=== PATIENT | female | born 1980 | race American Indian/Alaskan Native ===

== ENCOUNTER 2016-03-07 21:03 | Outpatient (CLI) | payer MEDICAID ==
[2016-03-07] MEDS ORDERED: LACTATED RINGERS 500 ML IV ONE (21:08)
[2016-03-07] MEDS ORDERED: LACTATED RINGERS 1,000 ML ONE ×2 (21:22→22:24)
[2016-03-07 22:10] LABS: Bilirubin,Urine NEG (Negative); Blood,Urine NEG (Negative); Ketones,Urine TR mg/dL (Negative); Leukocyte Esterase,Urine NEG (Negative); Nitrite,Urine NEG (Negative); Protein,Urine <15 mg/dL mg/dL (Negative); Urobilinogen,Urine < 2.0 mg/dL (<2.0)
[2016-03-07] MEDS: BRETHINE SUB-Q PRN ×3 (22:25→23:18)
[2016-03-07 22:48] VITALS: BP 121/59
[2016-03-07] MEDS ORDERED: LACTATED RINGERS 1,000 ML IV SCH (23:00)
[2016-03-08] MEDS ORDERED: VISTARIL PO ONE (00:01)
== END 2016-03-08 00:21 | disposition home or self-care (01) ==
LOC: TRG 21:03
PROVIDERS: ATTEND Obstetrics & Gynecology
DX: O62.0 Primary inadequate contractions (principal); Z3A.36 36 weeks gestation of pregnancy
CPT/HCPCS: 81001; 96360; 96361; 96372; J3105; J7120; Q0177

== ENCOUNTER 2016-04-04 02:19 | Inpatient (IN) | payer MEDICAID ==
[2016-04-04] MEDS ORDERED: LACTATED RINGERS 1,000 ML ONE (03:09)
[2016-04-04] MEDS: LACTATED RINGERS 1,500 ML IV NR ×2 (03:30→05:05)
[2016-04-04] MEDS ORDERED: REGLAN IV ONE (03:58)
[2016-04-04] MEDS ORDERED: BICITRA PO ONE (03:58)
[2016-04-04] MEDS ORDERED: PEPCID IV ONE (03:59)
[2016-04-04] MEDS ORDERED: PITOCin/NS 20 UNIT/1000ML DRIP 20,000 MILLIUNITS/1,000 ML BAG IV ONE (04:23)
[2016-04-04] MEDS ORDERED: SUBLIMAZE IV ONE (04:31)
--- NOTE | 2016-04-04 04:56 | Anesthesia Consultation ---
Anesthesia Consult and Med Hx Date of service: 04/04/16 - Airway Anesthetic Teeth Evaluation: Good ROM Head & Neck: Adequate Mental/Hyoid Distance: Adequate Mallampati Class: Class II Intubation Access Assessment: Probably Good - Pulmonary Exam CTA: Yes - Cardiac Exam Cardiac Exam: RRR - Pre-Operative Health Status ASA Pre-Surgery Classification: ASA2 Proposed Anesthetic Plan: Spinal - Pulmonary Hx Smoking: No Hx Asthma: No - Cardiovascular System Hx Hypertension: No - Central Nervous System Hx Seizures: No Hx Psychiatric Problems: No - Endocrine Hx Renal Disease: No Hx Hypothyroidism: No Hx Hyperthyroidism: No - Hematic Hx Anemia: No Hx Sickle Cell Disease: No - Other Systems Hx Alcohol Use: No
--- NOTE | 2016-04-04 04:56 | Anesthesia Day of Surgery ---
Anesthesia Day of Surgery - Day of Surgery Patient Examined: Yes Patient H&P Reviewed: Yes Patient is NPO: Yes
[2016-04-04] MEDS ORDERED: ZOFRAN IV PRN ×2 (04:57→07:29)
[2016-04-04] MEDS ORDERED: PHENERGAN PR PRN ×2 (04:57→07:29)
[2016-04-04] MEDS ORDERED: DILAUDID IV PRN ×2 (04:57)
[2016-04-04] MEDS ORDERED: PHENERGAN PO PRN (04:57)
[2016-04-04] MEDS ORDERED: NARCAN 0.4 MG/1 ML IV PRN ×2 (04:57→07:29)
[2016-04-04] MEDS ORDERED: SODIUM CHLORIDE FLUSH SYRINGE 10 ML IV NR ×2 (05:00→08:00)
--- NOTE | 2016-04-04 05:02 | History and Physical Report ---
History of Present Illness Date of examination: 04/04/16 Date of admission: 04/04/16 04:32 Chief complaint: complaining of contractions and srom History of present illness: 35 yo at 40 weeks complaining of initially srom neg for srom c/o contractions and noted to be 2-3cm by nurse. She obtained care at 10 weeks by MONTEZ tucker. She received [facility] recommendations for AMA. She has a hx of HSV2 and in the past she had 3 with a csec for oligo failed iol chorio and arrest of dilataion. She is s previous A1 diabetic buyt in this 3hr nl PMH: chlamydia treated in past gonorrhea treated in past Herpes and nl pap as of 2005 2012 pap showed HPV+ ascus PSH: breast reduction and csec as above FMH: asthma ( mother) cancer ( uncle) DM 2 ( sister) HTN ( mother and sister) meds: PNV, valtrex all: NKDA SH: no tobacco no etoh no drugs labs O+, antibody neg h/h 11.6/35.8, pap nl, IMMUNE, Rpr neg, hep neg, HIV neg, Plt 247, HSV2 +, AA, G/C neg glucose 134 GBS neg US 03/03 [place] EGA 35 weeks EFW 2677 49% vertex anterior grade 2-3 placenta nl anatomy BPP 09/28 Past History Past Medical History: diabetes Past Surgical History: section, other (breast augementation) MACHINE [employer] History: abnormal PAP smear, gonorrhea, herpes Family/Genetic History: diabetes, hypertension, cancer Social history: no significant social history, . denies: smoking, alcohol abuse, IV drug use - Obstetrical History Expected Date of Delivery: 04/04/16 Actual Gestation: 40 Week(s) 0 Day(s) : 5 Para: 4 Hx # Term Pregnancies: 4 Number of Pregnancies: 0 Spontaneous Abortions: 0 Induced : 0 Number of Living Children: 4 Medications and Allergies Allergies Allergy/AdvReac Type Severity Reaction Status Date / Time No Known Allergies Allergy Verified 09/06/15 19:26 Active Meds: Active Medications Lactated Ringer's (Lactated Ringers) 1,500 mls @ 2,250 mls/hr IV PREOP NR Stop: 04/05/16 03:59 Review of Systems All systems: negative Constitutional: weight gain Eyes: deferred Ears, nose, mouth and throat: deferred Breasts: deferred Genitourinary: normal appearance, leakage of fluid, no vaginal bleeding Rectal Exam: deferred - Vital Signs Vital signs: Vital Signs Pulse Pulse Ox 101 H 92 04/04/16 02:56 04/04/16 02:56 Temp Pulse Resp BP Pulse Ox 107 H 20 114/71 97 04/04/16 04:35 04/04/16 04:49 04/04/16 03:09 04/04/16 04:35 - Physical Exam Breasts: Positive: normal Cardiovascular: Regular rate, Normal S1, Normal S2 Lungs: Positive: Clear to auscultation, Normal air movement Abdomen: Positive: normal appearance, soft, normal bowel sounds. Negative: distention, tenderness, guarding Genitourinary (Female): Positive: normal external genitalia, normal perenium Vulva: both: normal Vagina: Positive: normal moisture Uterus: Positive: enlarged, normal contour Anus/Rectum: Positive: normal perianal skin Extremities: Positive: normal. Negative: edema Deep Tendon Reflex Grade: Normal +2 - Obstetrical FHR: category 1 Uterine Contraction Monitor Mode: External Cervical Dilatation: 2 Uterine Contraction Pattern: Regular Results All other labs normal. Assessment and Plan A/P HD#1 Early labor GBS neg No indication of rupture desires repeat c/s desires salpingectomy discussed r/b/a which include but not limited to bleeding infection damage to pelvic and non pelvic damage risk of hysterectomy risk of . she verbal voiced understanding and will proceed with c/s as previously desired but both and herself declined All questions answered
[2016-04-04] MEDS ORDERED: ePHEDrine SULFATE ONE (05:04)
[2016-04-04] MEDS ORDERED: MORPHINE ONE (05:04)
[2016-04-04 05:13] LABS: Hematocrit 33.1 % (30.3-42.9); Hemoglobin 10.9 gm/dl (10.1-14.3); Mean Corpuscular HGB Conc 33 % (30-34); Mean Corpuscular Hemoglobin 29 pg (28-32); Mean Corpuscular Volume 88 fl (79-97); Platelet Count 273 K/mm3 (140-440); Red Blood Count 3.77 M/mm3 (3.65-5.03); Red Cell Distribution Width 14.9 % (13.2-15.2); White Blood Count 11.6 K/mm3 (4.5-11.0)
[2016-04-04] MEDS ORDERED: NACL 0.9% 1000 ML 1,000 ML ONE (05:52)
[2016-04-04] MEDS ORDERED: WATER FOR IRRIG STERILE IR ONE (05:55)
[2016-04-04] MEDS ORDERED: NACL 0.9% IR ONE (05:55)
[2016-04-04] MEDS ORDERED: NACL P/F VIAL (10 ML) 10 ML ONE (06:09)
[2016-04-04] MEDS ORDERED: VERSED ONE (06:33)
[2016-04-04] MEDS ORDERED: LANSINOH TP PRN (07:29)
[2016-04-04] MEDS ORDERED: SENOKOT PO PRN (07:29)
[2016-04-04] MEDS ORDERED: ANUCORT-HC PR PRN (07:29)
[2016-04-04] MEDS ORDERED: TUCKS PAD TP PRN (07:29)
[2016-04-04] MEDS ORDERED: MYLICON PO PRN (07:29)
[2016-04-04] MEDS ORDERED: TYLENOL PO PRN (07:29)
[2016-04-04] MEDS ORDERED: TORADOL IV PRN (07:29)
[2016-04-04] MEDS ORDERED: NORCO 5/325 PO PRN (07:29)
[2016-04-04] MEDS ORDERED: MORPHINE IV PRN (07:29)
[2016-04-04] MEDS ORDERED: MILK OF MAGNESIA PO PRN (07:29)
--- NOTE | 2016-04-04 07:35 | Procedure Note ---
OB Delivery Note - Delivery Date of Delivery: 04/04/16 Surgeon: RAMANDEEP ELIZABETH Estimated blood loss: other (750cc) - Section Preop diagnosis: repeat , desires sterilization Postop diagnosis: same section procedure: repeat low transverse, other (salpingectomy with ligassure) Complications: none - Infant A at 1 minute: 8 at 5 minutes: 9 Gender: Female (8 # 9 oz)
--- NOTE | 2016-04-04 07:42 | Post Anesthesia Evaluation ---
- Post Anesthesia Evaluation Patient Participated: Yes Airway Patent: Yes Stable Respiratory Function: Yes Temp > 96.8F: Yes Pain Manageable: Yes Adequeate Hydration: Yes Anesthesia Complications: No Block Receding Appropriately: Not Applicable
--- NOTE | 2016-04-04 07:49 | Operative Report ---
Operative Report Operative Report: This is a dictation note for Diana RE ID Diagnosis #1 intrauterine gestation at 40 weeks, in active labor #2 desires repeat #3 desires permanent sterilization, previous failed tubal ligation Postoperative diagnosis 1 through 3 same as above X 4 nuchal 1 loose Procedure repeat low segment transverse Salpingectomy via LigaSure [place] Surgeon Dr. Fiorella James [place] anesthesia spinal Complications none Estimated blood loss 750 mL Specimen to pathology right and left tube Operative findings A viable female infant with Apgars 8 and 9 and weight 8 pounds and 9 ounces was delivered from a cephalic presentation amnionic fluid was clear the uterus fallopian tubes and ovaries were normal Description of operation The patient was brought to the operating suite in stable condition with the spinal anesthesia that was placed and an indwelling catheter in place in the bladder the patient was placed supine in the operating room and rolled to her left side with the drainage. The abdomen was prepped and draped in the normal sterile fashion for the . After testing with the Allis to assure an adequate anesthetic level the surgery was commenced. We did sexual abuse counsellor the patient extensively regarding the risk of the surgery including but not limited to show embolus and phlebitis pain infection and hemorrhage as well as injury to the infant and the internal organs such as the bowel bladder and the blood vessels, nerves kidneys and ureters and pelvic organs. Survey such as the bowel bladder blood vessels and nerves kidneys ureters and pelvic organs. The patient was aware of that. Morbidity issues and recovery time frames. Patient was aware she can form adhesions which can result in obstruction of the loop of the bowel where the ureter or chronic pain. She is aware that she should have hemorrhage and required blood transfusion. There is a small chance for exposure to hepatitis or HIV disease. With the scalpel Vancil skin incision was made. Dissection was carried down sharply through to the subcutaneous tissue and the fascia in a transverse plane with scalpel, electrocautery and curved Melgar scissors were used. The fascia was sharply freed up superiorly and inferiorly from the underlying rectus muscles which were bluntly and sharply divided. The peritoneum was entered carefully in a clear space. The peritoneal incision was then extended vertically with the Metzenbaum scissors the retractor and the bladder blade were placed. The bladder flap was created incising transversely through the peritoneum and the vesicouterine fold and then bluntly dissecting the bladder distally. With the scalpel a low transverse hysterotomy was commenced the os noted to be very very thin. Cord and the uterine cavity was actually anterior to. Uterine incision was then extended with manipulation of the recoating machine operator's fingers. An intrauterine hand was placed in the head of the infant was brought up of the pelvis into the uterine incision prior to that Allis was used to break the bag was clear fluid the fundal pressure.*Assure she was delivered without difficulty. The nasopharynx and oropharynx was suctioned. The cord was double clamped and transected. The was handed off to the nursery personnel. Apgars were good at 8 and 9. Her blood was collected for routine testing. IV Pitocin was initiated prior to the case Ancef was given prior to the procedure. The The placenta was manually removed. The uterine cavity was then curetted with a dry sponge and freed of the remaining membranes. The edges of the uterine incision was grasped with a Cornejo clamps. The massage and Pitocin the uterus began to firm firm up normally. The uterine incision was then closed with the with 2 layers of 0 Vicryl sutures. The first suture was placed in the endometrium and the myometrium the second suture was placed within the endopelvic fascia and also reincorporated the bladder flap peritoneum. The lavage was then performed. The pelvis and the gutters were irrigated and suctioned and cleared of all blood and blood and clots and amniotic fluid. The uterine incision was reinspected Surgicel was placed at the uterine incision for reassurance excellent hemostasis was noted it was backfilled with sterile milk and there was no white substance noted in the trickle feel bladder was intact and attention was then turned to the left and right tubes there was noted to be a total clamp in the midline 2-3 cm on the on the right and on the left the clamp was located further distally and appropriately placed LigaSure was then operated and the tube was gently grasped with the Arcadio and it is tube we were able to do the LigaSure and cut all the way to completely transect the tube for salpingectomy on the left and the right was done in the same manner excellent hemostasis was noted when satisfied with hemostasis, attention was turned to the closure of the abdominal incision the peritoneal muscles and fascia was evaluated the fascia was closed with a PDS the subcutaneous tissue was closed with a 30 plain and the skin was closed with a subcuticular suture 40 with a Dwayne needle followed by benzoin and Steri-Strips and Telfa dressing. The patient was moved to the recovery room in stable condition with the Alberts catheter draining clear urine and she responds and needle counts were correct 2 estimated blood loss was 750 mL and there were no complication is the end of the dictation thank you
[2016-04-04] MEDS ORDERED: DRIP IV SCH (08:00)
[2016-04-04] MEDS ORDERED: NS IV SCH (08:00)
[2016-04-04] MEDS ORDERED: PITOCIN IV SCH (08:00)
[2016-04-04] MEDS ORDERED: PITOCin/NS 20 UNIT/1000ML DRIP 20 UNIT/1,000 ML BAG IV SCH (10:00)
[2016-04-04] MEDS ORDERED: D5LR 1,000 ML IV ONE (16:30)
[2016-04-04] MEDS ORDERED: D5LR 1,000 ML IV SCH (18:00)
[2016-04-04 19:13] LABS: Hematocrit 26.8 % (30.3-42.9); Hemoglobin 8.9 gm/dl (10.1-14.3)
[2016-04-05] MEDS: MOTRIN PO PRN ×2 (04:06→13:31)
[2016-04-05] MEDS ORDERED: BOOSTRIX IM ONE ×2 (05:47→12:00)
[2016-04-05] MEDS ORDERED: MILK OF MAGNESIA PO PRN (08:45)
--- NOTE | 2016-04-05 08:47 | Progress Note ---
Assessment and Plan A: POD#1 s/p repeat section with bilateral salpingectomy, Asymptomatic anemia P: Routine postop care. Abdominal binder. Aggressive bowel regimen. Subjective - Subjective Date of service: 04/05/16 Principal diagnosis: s/p section at term, salpingectomy Interval history: No overnight events. Patient reports: appetite normal, pain well controlled, flatus, ambulating normally, no bowel movement, no nauseated : doing well Objective - Vital Signs Latest vital signs: Vital Signs Temp Pulse Resp BP 04/05/16 03:00 98.6 F 85 18 109/55 04/05/16 00:00 98.5 F 87 18 101/57 04/04/16 21:00 98.5 F 85 18 116/62 04/04/16 16:20 98.4 F 80 20 112/70 04/04/16 11:44 98.3 F 76 20 120/70 Intake and Output 04/04/16 04/05/16 04/05/16 22:59 06:59 14:59 Intake Total 495 360 Output Total 1200 1000 Balance -705 -640 Intake: IV 375 D5lr 1,000 ml @ 125 mls/ 250 hr IV DIRECT VERNA Rx#: [id number] Left Hand 125 Oral 120 Intake, Free Water 360 Output: Urine 1200 1000 Indwelling Catheter 600 Void 600 1000 Other: Total, Intake Amount 120 Total, Output Amount 600 600 - Exam Breasts: Present: deferred Cardiovascular: Present: Regular rate Lungs: Present: Clear to auscultation Abdomen: Present: soft (obese ), distention (mild ), abnormal bowel sounds ( hypoactive ) Uterus: Present: fundal height at umbilicus Extremities: Present: edema (trace ) Incision: Present: dressed - Labs Labs: Abnormal lab results 04/04/16 Range/Units 19:04 Hgb 8.9 L (10.1-14.3) gm/dl Hct 26.8 L D (30.3-42.9) %
[2016-04-05] MEDS: PERCOCET 5/325 PO PRN ×3 (09:23→17:50)
[2016-04-05] MEDS: FEOSOL PO SCH ×2 (10:55→11:00)
[2016-04-05] MEDS: PRENATAL VITAMIN PO SCH ×2 (10:55→11:00)
[2016-04-05] MEDS ORDERED: M-M-R II VACCINE SUB-Q ONE (12:00)
--- NOTE | 2016-04-05 13:41 | Progress Note ---
Subjective Date of service: 04/05/16 Principal diagnosis: s/p section at term, salpingectomy Interval history: 1st POD after Patient is in the bed, comfortable. Pain is mostly controlled with pain meds. Ambulated normally. No residual neurological deficit. No anesthesia complications Objective - Constitutional Vitals: Vital Signs - 12hr 04/05/16 04/05/16 04/05/16 03:00 07:45 09:23 Temperature 98.6 F 98.2 F Pulse Rate [ 85 69 Right Radial] Respiratory 18 20 20 Rate Blood Pressure 109/55 100/56 [Right Arm] 04/05/16 04/05/16 13:31 13:32 Temperature Pulse Rate [ Right Radial] Respiratory 20 20 Rate Blood Pressure [Right Arm] - Labs CBC & Chem 7: 04/04/16 19:04 Labs: Abnormal lab results 04/04/16 Range/Units 19:04 Hgb 8.9 L (10.1-14.3) gm/dl Hct 26.8 L D (30.3-42.9) %
[2016-04-05] MEDS: MILK OF MAGNESIA PO SCH ×2 (18:00→22:00)
[2016-04-06] MEDS: MILK OF MAGNESIA PO SCH (02:05)
[2016-04-06] MEDS: PERCOCET 5/325 PO PRN ×2 (04:54→08:45)
[2016-04-06] MEDS ORDERED: BOOSTRIX IM ONE (06:00)
[2016-04-06] MEDS ORDERED: TRIPLE ANTIBIOTIC TP SCH (08:00)
--- NOTE | 2016-04-06 08:37 | Progress Note ---
Assessment and Plan - Patient Problems (1) Previous delivery affecting Current Visit: Yes Status: Acute Plan to address problem: Patient doing well Discharge home Subjective - Subjective Date of service: 04/06/16 Principal diagnosis: s/p section at term, salpingectomy Interval history: Patient is without complaints. She is currently tolerating a regular diet and her pain is well-controlled. Patient reports: appetite normal, voiding normally, pain well controlled : doing well Objective - Vital Signs Latest vital signs: Vital Signs Temp Pulse Resp BP 04/06/16 00:00 98.6 F 62 18 116/53 04/05/16 18:45 98.2 F 69 20 100/56 04/05/16 17:50 20 04/05/16 13:32 20 04/05/16 13:31 20 04/05/16 09:23 20 Intake and Output 04/05/16 04/06/16 04/06/16 22:59 06:59 14:59 Intake Total 480 Balance 480 Intake: Oral 480 Other: Total, Intake Amount 240 # Voids Void 1 1 - Exam Abdomen: Present: normal appearance, soft Uterus: Present: normal, firm Incision: Present: normal
--- NOTE | 2016-04-06 08:38 | Discharge Summary ---
Providers - Providers Date of Admission: 04/04/16 04:32 Date of discharge: 04/06/16 Attending physician: RAMANDEEP JAMES MD Primary care physician: RAMANDEEP JAMES MD Hospitalization Reason for admission: section Delivery: Procedure: section, bilateral tubal ligation, repeat low transverse Incision: normal Discharge diagnosis: IUP at term delivered [place] baby: female Hospital course: The patient was admitted for repeat delivery. Please see operative note for details of surgery. Her postoperative course was uneventful. Condition at discharge: Good Disposition: DISCHARGED TO HOME OR SELFCARE - Discharge Diagnoses (1) Previous delivery affecting Status: Acute Plan - Discharge Medications Prescriptions: Ferrous Sulfate [Feosol 325 MG tab] 325 mg PO BID #60 tablet Ibuprofen [Motrin] 800 mg PO Q8HR PRN #30 tablet PRN Reason: Pain oxyCODONE /ACETAMINOPHEN [Percocet 5/325] 1 tab PO Q6HR PRN #40 tablet PRN Reason: Pain Vit-Fe Fumar-FA [ Vitamin] 1 tab PO QDAY #30 tablet - Provider Discharge Summary Activity: no sex for 6 weeks, no heavy lifting 4 weeks, no strenuous exercise Diet: routine Instructions: routine Additional instructions: [] Smoking cessation referral if applicable(refer to patient education folder for contact #) [] Refer to [facility]'s [facility] Booklet Call your doctor immediately for: * Fever > 100.5 * Heavy vaginal bleeding ( >1 pad per hour) * Severe persistent headache * Shortness of breath * Reddened, hot, painful area to leg or breast * Drainage or odor from incision. * Keep incision clean and dry at all times and follow doctor's instructions regarding bathing/showering Follow-up in [address] James for an incision check - Follow up plan
[2016-04-06] MEDS: MOTRIN PO PRN (08:46)
[2016-04-06 09:51] VITALS: BP 120/66
== END 2016-04-06 11:20 | disposition home or self-care (01) | DRG 765 ==
LOC: TRG 02:19 → APU 04:32 → OB 07:46 → APU 07:47 → OB 09:04
PROVIDERS: ADMIT Obstetrics & Gynecology; ATTEND Obstetrics & Gynecology
PROC: 10D00Z1 Extraction of Products of Conception, Low, Open Approach (ICD-10-PCS; principal; 2016-04-04)
PROC: 0UT70ZZ Resection of Bilateral Fallopian Tubes, Open Approach (ICD-10-PCS; 2016-04-04)
DX: O34.219 Maternal care for unspecified type scar from previous cesarean delivery (principal); O24.12 Pre-existing type 2 diabetes mellitus, in childbirth; D62 Acute posthemorrhagic anemia; O90.81 Anemia of the puerperium; Z37.0 Single live birth; Z82.5 Family history of asthma and other chronic lower respiratory diseases; Z3A.40 40 weeks gestation of pregnancy; Z83.3 Family history of diabetes mellitus; Z80.9 Family history of malignant neoplasm, unspecified; Z82.49 Family history of ischemic heart disease and other diseases of the circulatory system; O09.523 Supervision of elderly multigravida, third trimester; Z30.2 Encounter for sterilization
CPT/HCPCS: 36415; 85014; 85018; 85027; 86850; 86900; 86901; 88302; 90471; 90715; A6250; J1170; J2250; J2270; J2405; J2590; J2765; J3010; J7030; J7120; J7121